=== PATIENT | male | born 1950 | race Caucasian/White ===

== ENCOUNTER 2017-09-02 14:29 | Emergency (ER) | payer MEDICAID, MEDICARE ==
[~2017-09-02] VITALS: Ht 172.7 cm; Wt 68.0 kg
[~2017-09-02 14:29] MED LIST: BP MED; PERC10TA26 PO; VASO10TA8 PO
[2017-09-02 14:37] VITALS: BP 243/112; PULSE 83; RESP 18; O2SAT 98
[2017-09-02 14:57] VITALS: BP 184/81; PULSE 83; O2SAT 98
--- NOTE | 2017-09-02 15:36 | PD ---
HPI Chief Complaint: Fall Time Seen by Provider: 15:13 Travel History International Travel<30 days: No Contact w/Intl Traveler<30days: No Traveled to known affect area: No History of Present Illness HPI 67-year-old male patient with history of previous sacral and lumbar surgeries, chronic back pain, presents to the ER today because he states that last night he had fallen at [facility], he states he tripped and fell, and hurt his left big toe, has a cut on it. However, he was not able to get it washed out or take a look at it more. He also states that he is still having pain in his lower back area, states he fell on it as well. He denies any loss of consciousness or other injuries. Modifying Factors: None Associated Signs & Symptoms: Trip and fall, injury to the big toe, lower back pain Risk Factors: History of chronic lower back pain PFSH Past Medical History ADD: Yes Arthritis: Yes Hypertension: Yes Musculoskeletal: Yes (HERNIATED DISC IN BACK, TORN MENISCOUS, CHRONIC FOOT PAIN ) ?: Not Social History Alcohol Use: Yes (1-3 BEERS 3 DAYS A WEEK) Tobacco Use: Yes (SMOKES A PIPE) Substance Use: No Allergies-Medications (Allergen,Severity, Reaction): Coded Allergies: ciprofloxacin (Unverified Allergy, Severe, VOMITING, 09/02/17) penicillin G (Unverified Allergy, Severe, 09/02/17) tramadol (Unverified Allergy, Severe, SEIZURES, 09/02/17) acetaminophen (Verified Allergy, Unknown, 09/02/17) Reported Meds & Prescriptions Reported Meds & Active Scripts Active Percocet 10/650 (Oxycodone/Acetaminophen) Tab 1 Tab PO Q6HPRN FOR PAIN Vasotec (Enalapril Maleate) 10 Mg Tab 10 Mg PO DAILY Reported [Bp Med] Review of Systems Except as stated in HPI: all other systems reviewed are Neg Physical Exam Narrative GENERAL: Well-developed elderly white male patient currently in mild distress. Awake and oriented 3. SKIN: Focused skin assessment warm/dry. There are notable small lacerations and abrasions over the big left toe with no subungual hematoma, mildly tender to palpation. HEAD: Atraumatic. Normocephalic. EYES: Pupils equal and round. No scleral icterus. No injection or drainage. ENT: No nasal bleeding or discharge. Mucous membranes pink and moist. NECK: Trachea midline. No JVD. Supple. CARDIOVASCULAR: Regular rate and rhythm. No murmur appreciated. RESPIRATORY: No accessory muscle use. Clear to auscultation. Breath sounds equal bilaterally. GASTROINTESTINAL: Abdomen soft, non-tender, nondistended. Hepatic and splenic margins not palpable. BACK: No CVA tenderness. No rash. No point tenderness on palpation of the spine. No step-offs. MUSCULOSKELETAL: No obvious deformities. No clubbing. No cyanosis. No edema. NEUROLOGICAL: Awake and alert. No obvious cranial nerve deficits. Motor grossly within normal limits. Normal speech. PSYCHIATRIC: Appropriate mood and affect; insight and judgment normal. Data Data Last Documented VS Vital Signs Date Time Temp Pulse Resp B/P (MAP) Pulse Ox O2 Delivery O2 Flow Rate FiO2 09/02/17 14:57 83 184/81 (115) 98 Room Air 09/02/17 14:37 18 Orders Orders Toe (Min 2vws) (09/02/17 15:13) Spine, Lumbar Comp W/Obliq (09/02/17 15:13) Pelvis, Ap Only (Routine) (09/02/17 15:13) Ibuprofen (Motrin) (09/02/17 15:45) MDM Medical Decision Making Medical Screen Exam Complete: Yes Emergency Medical Condition: Yes Medical Record Reviewed: Yes Interpretation(s) Last 24 hours Impressions Toe X-Ray 09/02/171512 Signed Impressions: Service Date/Time: Saturday, September 02, 2017 15:51 - CONCLUSION: No evidence of fracture. No radiopaque foreign body identified. Prominent osteoarthritic findings in the great toe MTP joint. Ricardo Moreno MD Pelvis X-Ray 09/02/171512 Signed Impressions: Service Date/Time: Saturday, September 02, 2017 15:57 - CONCLUSION: No evidence of fracture. Ricardo Moreno MD Lumbar Spine X-Ray 09/02/171512 Signed Impressions: Service Date/Time: Saturday, September 02, 2017 15:58 - CONCLUSION: No evidence of fracture. Ricardo Moreno MD Differential Diagnosis Contusions versus fractures Narrative Course X-rays did not show obvious acute fractures or dislocations. Patient has abrasions and small lacerations over the toe which was cleaned in the ER. At this point, I will put him on an antibiotic due to the nature to injury. Planning to release the patient would follow-up to primary care doctor. Return for any signs of infection or new issues as needed. The plan has been discussed with the patient he states understanding. Diagnosis Primary Impression: Toe laceration Additional Impression: Acute exacerbation of chronic low back pain Med/Other Pt SpecificInfo: Prescription(s) given Scripts Doxycycline Hyclate (Doxycycline Hyclate) 100 Mg Cap 100 MG PO BID for Infection for 7 Days, #14 CAP 0 Refills Prov: Isaiah Varner MD 09/02/17 Ibuprofen (Ibuprofen) 600 Mg Tab 600 MG PO Q6H Y for Pain/Inflammation, #20 TAB 0 Refills Prov: Isaiah Varner MD 09/02/17 Disposition: 01 DISCHARGE HOME Condition: Stable Isaiah Varner MD September 02, 2017 15:35
[2017-09-02] MEDS ORDERED: IBUPROFEN 600 MG TAB PO ONE (15:45)
--- NOTE | 2017-09-02 16:40 | RADRPT ---
EXAM DATE/TIME: 09/02/2017 15:51 [facility] COMPARISON: No previous studies available for comparison. INDICATIONS : Patient complains of pain and laceration to 1st digit, left foot. MEDICAL HISTORY : None. SURGICAL HISTORY : None. ENCOUNTER: Initial ACUITY: 1 day PAIN SCORE: 4/10 LOCATION: Left Foot, 1st digit. FINDINGS: 4 view of the left first digit. The moderate sized great toe metatarsophalangeal joint osteophytes an d joint narrowing. No evidence of fracture. Alignment within normal limits. No radiopaque foreign bod y identified. CONCLUSION: No evidence of fracture. No radiopaque foreign body identified. Prominent osteoarthritic findings in the great toe MTP joint. Ricardo Moreno MD on September 02, 2017 at 16:37 Board Certified Radiologist. This report was verified electronically.
--- NOTE | 2017-09-02 16:49 | RADRPT ---
EXAM DATE/TIME: 09/02/2017 15:57 [facility] COMPARISON: No previous studies available for comparison. INDICATIONS : Patient complains of pelvic pain status post fall. MEDICAL HISTORY : None. SURGICAL HISTORY : SI Joint ORIF. ENCOUNTER: Initial ACUITY: 1 day PAIN SCORE: 5/10 LOCATION: Pelvis FINDINGS: Single AP view pelvis. 2 left-sided metallic implants cross the sacroiliac joint. Bone alignment with in normal limits. No evidence of fracture. CONCLUSION: No evidence of fracture. Ricardo Moreno MD on September 02, 2017 at 16:45 Board Certified Radiologist. This report was verified electronically.
--- NOTE | 2017-09-02 16:51 | RADRPT ---
EXAM DATE/TIME: 09/02/2017 15:58 [facility] COMPARISON: No previous studies available for comparison. INDICATIONS : Patient complains of lower back pain status post fall. MEDICAL HISTORY : None. SURGICAL HISTORY : SI Joint ORIF. ENCOUNTER: Initial ACUITY: 1 day PAIN SCORE: 7/10 LOCATION: L-Spine FINDINGS: 5 views of the lumbar spine. Mild bony facet hypertrophy of the lower lumbar spine. Small endplate os teophytes at every level. Bone alignment within normal limits. No evidence of fracture. Surgical cli ps in the right upper quadrant of the abdomen. CONCLUSION: No evidence of fracture. Ricardo Moreno MD on September 02, 2017 at 16:47 Board Certified Radiologist. This report was verified electronically.
[2017-09-02] MEDS ORDERED: DOXY100C PO (17:29)
[2017-09-02] MEDS ORDERED: IBUP-232 PO (17:29)
[2017-09-02 17:50] VITALS: BP 178/82
== END 2017-09-02 18:29 | disposition home or self-care (01) ==
LOC: NEPC 14:29
DX: S91.112A Laceration without foreign body of left great toe without damage to nail, initial encounter (principal); F98.8 Other specified behavioral and emotional disorders with onset usually occurring in childhood and adolescence; M19.90 Unspecified osteoarthritis, unspecified site; I10 Essential (primary) hypertension; F17.290 Nicotine dependence, other tobacco product, uncomplicated; W01.0XXA Fall on same level from slipping, tripping and stumbling without subsequent striking against object, initial encounter; Y92.838 Other recreation area as the place of occurrence of the external cause; Z88.1 Allergy status to other antibiotic agents; Z88.0 Allergy status to penicillin
CPT/HCPCS: 72110; 72170; 73660; 99284

== ENCOUNTER 2017-09-09 20:00 | Emergency (ER) | payer MEDICARE, MEDICAID ==
[~2017-09-09] VITALS: Ht 170.2 cm; Wt 67.0 kg
[~2017-09-09 20:00] MED LIST changes: +DOXY100C PO; +IBUP-232 PO
[2017-09-09 20:04] VITALS: BP 203/91; PULSE 81; RESP 18; TEMP 97.6; O2SAT 97
[2017-09-09] MEDS ORDERED: SULFAMETHOXAZOLE-TRIMETHOPRIM DS 800-160 MG TAB PO ONE (20:30)
[2017-09-09] MEDS ORDERED: TETANUS/DIPHTHERIA TOXOID ADULT 0.5 ML VIAL IM ONE (20:30)
--- NOTE | 2017-09-09 20:49 | RADRPT ---
EXAM DATE/TIME: 09/09/2017 20:37 [facility] COMPARISON: No previous studies available for comparison. INDICATIONS : Pain in left knee after falling. MEDICAL HISTORY : None. SURGICAL HISTORY : None. ENCOUNTER: Initial ACUITY: 1 week PAIN SCORE: 4/10 LOCATION: Left knee. FINDINGS: Four view examination of the left knee demonstrates no evidence of fracture or dislocation. Bony min eralization is normal. The articular surfaces are intact. The suprapatellar soft tissues have a nor mal configuration. There is no evidence of joint effusion. There is a benign cortical defect involvin g the posterior tibia. CONCLUSION: No acute fracture or joint dislocation. Ramy Goyal MD on September 09, 2017 at 20:45 Board Certified Radiologist. This report was verified electronically.
--- NOTE | 2017-09-09 20:49 | RADRPT ---
EXAM DATE/TIME: 09/09/2017 20:40 [facility] COMPARISON: No previous studies available for comparison. INDICATIONS : Pain in right arm after falling. MEDICAL HISTORY : None. SURGICAL HISTORY : None. ENCOUNTER: Initial ACUITY: 1 week PAIN SCORE: 4/10 LOCATION: Right forearm. FINDINGS: Two view examination of the right forearm demonstrates no evidence of fracture or dislocation. Bony mineralization is normal. The soft tissue structures are intact. CONCLUSION: No acute fracture or joint dislocation. Ramy Goyal MD on September 09, 2017 at 20:46 Board Certified Radiologist. This report was verified electronically.
[2017-09-09] MEDS ORDERED: BACT800T5 PO (20:56)
[2017-09-09] MEDS ORDERED: IBUP-232 PO (20:56)
[2017-09-09] MEDS ORDERED: MUPI2%T TOPICAL (20:56)
--- NOTE | 2017-09-09 21:11 | PD ---
HPI Chief Complaint: Fall Time Seen by Provider: 20:15 Travel History International Travel<30 days: No Contact w/Intl Traveler<30days: No Traveled to known affect area: No History of Present Illness HPI 67-year-old male presents emergency department status post mechanical fall last evening by his report, causing injury to the left lateral great toe, with a deep abrasion, and pain in the left medial knee, and right forearm. Patient denies hitting his head or loss of consciousness. He denies neck pain. He has no thoracic injury. Patient suffers from chronic back pain which is no different than normal according to the patient. He is concerned about possible infection to the left great toe, and the aches and pains in the left knee and forearm. Pain is 6 out of 10. He denies fever or chills. He is allergic to acetaminophen, Cipro, penicillin, and tramadol. PFSH Past Medical History ADD: Yes Arthritis: Yes Diminished Hearing: No Hypertension: Yes Musculoskeletal: Yes (HERNIATED DISC IN BACK, TORN MENISCOUS, CHRONIC FOOT PAIN ) Tetanus Vaccination: < 5 Years Influenza Vaccination: No Past Surgical History Cholecystectomy: Yes Other Surgery: Yes (back epideral) Social History Alcohol Use: Yes (1-3 BEERS 3 DAYS A WEEK) Tobacco Use: Yes (SMOKES A PIPE) Substance Use: No Allergies-Medications (Allergen,Severity, Reaction): Coded Allergies: ciprofloxacin (Unverified Allergy, Severe, VOMITING, 09/09/17) penicillin G (Unverified Allergy, Severe, 09/09/17) tramadol (Unverified Allergy, Severe, SEIZURES, 09/09/17) acetaminophen (Verified Allergy, Unknown, 09/09/17) Reported Meds & Prescriptions Reported Meds & Active Scripts Active Doxycycline Hyclate 100 Mg Cap 100 Mg PO BID 7 Days Ibuprofen 600 Mg Tab 600 Mg PO Q6H PRN Percocet 10/650 (Oxycodone/Acetaminophen) Tab 1 Tab PO Q6HPRN FOR PAIN Vasotec (Enalapril Maleate) 10 Mg Tab 10 Mg PO DAILY Reported [Bp Med] Review of Systems Except as stated in HPI: all other systems reviewed are Neg General / Constitutional: No: Fever Eyes: No: Visual changes HENT: No: Headaches Cardiovascular: No: Chest Pain or Discomfort Respiratory: No: Shortness of Breath Gastrointestinal: No: Abdominal Pain Genitourinary: No: Dysuria Musculoskeletal: Positive: Arthralgias, Limited ROM, Pain Skin: Positive Lesions, No Rash Neurologic: No: Weakness Psychiatric: No: Depression Endocrine: No: Polydipsia Hematologic/Lymphatic: No: Easy Bruising Physical Exam Narrative GENERAL: Patient appears in mild distress. SKIN: Warm and dry. Normal color. Normal turgor. Patient is a deep abrasion to the left lateral great toe. There is localized mild swelling and induration. There is no drainage or bleeding. HEAD: Atraumatic. Normocephalic. Nontender. EYES: Pupils equal and round. No scleral icterus. No injection or drainage. ENT: No nasal bleeding or discharge. Mucous membranes pink and moist. No dental injury. Pharynx is clear. Airways patent NECK: Trachea midline. No bony tenderness or step-off. Range of motion is full and supple. CARDIOVASCULAR: Regular rate and rhythm. RESPIRATORY: No accessory muscle use. Clear to auscultation. Breath sounds equal bilaterally. MUSCULOSKELETAL: Extremities without clubbing, cyanosis, or edema. No obvious deformities. Right arm is nonspecific tenderness along the lateral aspect. Left knee appears normal without significant deformity or effusion. Patient complains of pain with palpation along the medial joint line. Range of motion is intact. Patient is able toward without difficulty. Left toe has no bony tenderness or deformity. NEUROLOGICAL: Awake and alert. No obvious cranial nerve deficits. Motor grossly within normal limits. Five out of 5 muscle strength in the arms and legs. Normal speech. PSYCHIATRIC: Appropriate mood and affect; insight and judgment normal. Data Data Last Documented VS Vital Signs Date Time Temp Pulse Resp B/P (MAP) Pulse Ox O2 Delivery O2 Flow Rate FiO2 09/09/17 20:04 97.6 81 18 203/91 (128) 97 Orders Orders Tetanus/Diphtheria Tox Adult (Tetanus/Di (09/09/17 20:30) Sulfamet-Trimeth Ds 800-160 Mg (Bactrim (09/09/17 20:30) Wound Care (09/09/17 20:22) Forearm (2vws) (09/09/17 20:22) Knee, Complete (4vws) (09/09/17 20:22) [facility] Medical Decision Making Medical Screen Exam Complete: Yes Emergency Medical Condition: Yes Differential Diagnosis Trip and fall. Left toe abrasion. Left knee sprain. Right forearm contusion. Possible fracture. Cellulitis. Narrative Course Patient is given a tetanus shot 0.5 mg IM. Abrasion is cleaned and dressed by nursing staff. X-ray of the left knee and right forearm are ordered. Patient is given Bactrim DS p.o. 1. X-ray shows moderate arthritis but no acute fracture or dislocation in either the right forearm, elbow, or left knee. Patient will be treated with ibuprofen 6 mg 4 times daily #40. Patient will be continued on Bactrim DS twice daily 7 days. Patient will be given Bactroban ointment to be placed twice daily after washing the wound on the left great toe with soap and water. Patient is referred to [facility] for further follow-up as needed. Diagnosis Primary Impression: Slipping, tripping and stumbling without falling due to stepping from one level to another, subsequent encounter Additional Impressions: Abrasion, left great toe, subsequent encounter Left knee sprain Qualified Codes: S83.412D - Sprain of medial collateral ligament of left knee , subsequent encounter Contusion of right forearm, subsequent encounter Referrals: [facility] Primary Care Physician Patient Instructions: Abrasion (ED), Contusion in Adults (ED), General Instructions, Osteoarthritis (ED) Additional Instructions: Patient is given Bactrim DS p.o. 1. X-ray shows moderate arthritis but no acute fracture or dislocation in either the right forearm, elbow, or left knee. Patient will be treated with ibuprofen 6 mg 4 times daily #40. Patient will be continued on Bactrim DS twice daily 7 days. Patient will be given Bactroban ointment to be placed twice daily after washing the wound on the left great toe with soap and water. Patient is referred to [facility] for further follow-up as needed. Med/Other Pt SpecificInfo: Prescription(s) given, Wound Care Disposition: 01 DISCHARGE HOME Condition: Stable Kirill Bustamante September 09, 2017 20:28
[2017-09-09 21:45] VITALS: BP 169/81
== END 2017-09-09 22:30 | disposition home or self-care (01) ==
LOC: NEPC 20:00
DX: S90.412A Abrasion, left great toe, initial encounter (principal); S83.412A Sprain of medial collateral ligament of left knee, initial encounter; S50.11XA Contusion of right forearm, initial encounter; G89.29 Other chronic pain; M54.9 Dorsalgia, unspecified; I10 Essential (primary) hypertension; F17.290 Nicotine dependence, other tobacco product, uncomplicated; W17.89XA Other fall from one level to another, initial encounter; Z23 Encounter for immunization
CPT/HCPCS: 73090; 73564; 90471; 90714